=== PATIENT | female | born 1960 | race Caucasian/White ===

== ENCOUNTER 2023-04-18 12:56 | Emergency (ER) | payer OTHER, SELFPAY ==
--- NOTE | ~2023-04-18 | XR_ITS ---
EXAMINATION: XR CHEST CLINICAL INFORMATION: Productive cough COMPARISON: None available. TECHNIQUE: 2 views of the chest were obtained. FINDINGS: No significant abnormality is noted involving the heart, lungs, mediastinum, bony thorax or soft tissues. XR/XR chest 2V IMPRESSION: Unremarkable examination.
[2023-04-18 13:11] VITALS: BP 161/78; PULSE 74; RESP 16; TEMP 36.2; O2SAT 96; BMI 31.8
--- NOTE | 2023-04-18 13:12 | ED_ITS ---
HPI - General Adult General Chief complaint: Upper Respiratory Symptoms Stated complaint: sinus issue Time Seen by Provider: 04/18/23 13:21 Source: patient, RN notes reviewed and old records reviewed Mode of arrival: ambulatory History of Present Illness HPI narrative: 62-year-old female with no significant past medical history presenting to the ED complaining nasal congestion, sinus pressure, rhinorrhea, sore throat, ear pain, and productive cough times a few weeks. Has been taking OTC medications without relief. Reports subjective fever and chills. Also reports mild SOB. Denies chest pain, travel, sick contacts Related Data Previous Rx's Medication Instructions Recorded amoxicillin 875 mg tablet 875 mg PO BID 7 days #14 tabs 04/18/23 benzonatate 100 mg capsule 100 mg PO TID PRN cough #14 caps 04/18/23 fluticasone propionate 50 2 spray intranasal DAILY #16 grams 04/18/23 mcg/actuation nasal spray,suspension (Flonase Allergy Relief) prednisone 20 mg tablet 40 mg (2 x 20 mg) PO DAILY 5 days 04/18/23 #10 tabs Allergies Allergy/AdvReac Type Severity Reaction Status Date / Time Erythromycin Allergy Unknown Unknown Uncoded 04/18/23 13:15 Tylox Allergy Unknown Unknown Uncoded 04/18/23 13:15 Review of Systems Review of Systems: Constitutional: +subj Fever, +Chills ENT/Mouth: + Ear Pain, + Nasal Congestion, No Sinus Pain, No Hoarseness, + sore throat, + Rhinorrhea, No Swallowing Difficulty Cardiovascular: No Chest Pain, + SOB Respiratory: + Cough, + Sputum, No Wheezing Gastrointestinal: No Nausea, No Vomiting, No Diarrhea, No Constipation, No Abdominal pain Musculoskeletal: No joint pain, +Myalgias, No Joint Swelling Skin: No Skin Lesions, No rash Neuro: No Weakness, No Numbness, No Paresthesias Yes all other systems are reviewed and are negative Constitutional: Constitutional: Reports as per [facility] Past Medical History Attestation statement: The following information was validated with the patient. Source: old records reviewed Social History Social History Advance Directives: Yes Advance Directives Information Provided: No Advance Directives on File: No Physical Exam ED Vital Signs: Vital Signs - 24 hr 04/18/23 13:11 Temperature 97.2 F Pulse Rate 74 Respiratory Rate 16 Blood Pressure 161/78 H Pulse Oximetry 96 Oxygen Delivery Method Room Air BMI result Body Mass Index 31.8 Const General: cooperative, healthy appearing and no acute distress Orientation/consciousness: patient oriented x3 Limitations: no limitations HENMT Head: Yes normal to inspection and Yes atraumatic Ears: hearing grossly normal bilaterally, external ears normal, TM's normal bilaterally and mastoids normal General nose exam: Normal external nose present Face and sinus: Yes normal facial exam Mouth: Normal oral and palatal mucosa present and no drooling Throat: Yes posterior oropharynx normal, Yes tonsils normal, Yes uvula midline, No peritonsillar mass, No uvula laterally displaced and No uvular edema Eyes General: appearance normal, both eyes and all related structures EOM: EOMs intact bilaterally Neck Neck: Yes normal visual inspection and Yes no meningeal signs Resp Effort & Inspection: normal respiratory effort, no respiratory distress and no stridor Auscultation: clear to auscultation bilaterally, no crackles and no wheezes Cardio Rate: regular rate Heart sounds: S1 normal heart sound present and S2 normal heart sound present Skin Rashes: no rashes Wounds: no wounds Neuro General: patient oriented x3, tone normal and no meningeal signs Cranial nerves: Yes CN's II-XII intact bilaterally Gait exam (Neuro): Normal gait present Extrem General: Yes normal to inspection Course Course Course Narrative: This is a rapid medical exam: Additional HPI, ROS, PE not included below will be deferred to primary provider. Patient is a 62-year-old female presenting to the emergency department with complaint of sinus pain and pressure as well as cough productive of yellow/green sputum for the past 1.5 weeks, sore throat. Has been using OTC medications and nasal sprays without relief. Unsure of fevers, felt warm/chills but did not check with thermometer. Plan: viral swabs, strep, CXR -COVID/flu and strep negative. Will treat for sinusitis/bronchitis with antibiotics and prednisone Results discussed with patient including worrisome signs and symptoms and strict return precautions, and when to return to the emergency department. They verbalized understanding and feel safe for discharge at this time. Medical Decision Making Medical Decision Making MDM Narrative: 62-year-old female with no significant past medical history presenting to the ED complaining nasal congestion, sinus pressure, rhinorrhea, sore throat, ear pain, and productive cough times a few weeks. On exam vital signs stable, NAD, nontoxic appearing, TMs and oropharynx WNL. Lungs CTA. + congestion. Concern for viral illness vs sinusitis vs pharyngitis vs bronchitis/pneumonia. No evidence of [employer]/retropharyngeal abscess, acute otitis media/externa. Low suspicion for mastoiditis Plan: Viral testing, rapid strep, CXR Please refer to course for remaining clinical decision making, interpretation of labs/imaging results, and discussions with consultants and/or family members. Differential Diagnosis Differential Diagnoses: The differential diagnosis associated with the presentation includes As above Admission/Observation Consideration of admission/observation: Escalation of care including admission/observation considered Lab Data MDM Lab Attestation statement: I reviewed the patient's lab results. Labs: Lab Results 04/18/23 Range/Units 13:30 COVID-19 (TOÑA) Negative (Negative) COVID-19 Clin Com See Note Influenza Type A (MARLEN) Negative (Negative) Influenza Type B (MARLEN) Negative (Negative) Influenza A & B Note See Note S. pyogenes GrpA MARLEN Negative (Negative) Independent Interpretation I performed an independent interpretation of an: Plain X-Ray Radiology Impression Discussion of test interpretation with radiology: I have reviewed the radiologist's reading. External Record Review External record reviewed: Inpatient record, Office record, Outpatient record, Prior outpatient labs, Prior outpatient radiology, Primary care record and Outside ED record Tests considered The following testing was considered but not selected: As above Prescription Management I considered prescription management with: Antibiotic Discharge Plan Discharge Clinical Impression: Sinusitis, Bronchitis Patient Disposition: Home, Self-Care Instructions: Sinusitis (ED), Acute Bronchitis (ED) Additional Instructions: You tested negative for COVID, flu, strep, and your x-ray is unremarkable We will treat you for sinusitis as well as bronchitis Amoxicillin as an antibiotic please take as prescribed Prednisone as a steroid, Tessalon Perles for cough, take as needed Flonase as a nasal decongestant Follow-up with her doctor If symptoms persist or worsen return to the ED Prescriptions: New prednisone 20 mg tablet 40 mg PO DAILY 5 Days Qty: 10 0RF benzonatate 100 mg capsule 100 mg PO TID PRN (Reason: cough) Qty: 14 0RF fluticasone propionate [Flonase Allergy Relief] 50 mcg/actuation spray,laura pension 2 spray intranasal DAILY Qty: 16 0RF Rx Instructions: administer into each nostril amoxicillin 875 mg tablet 875 mg PO BID 7 Days Qty: 14 0RF Referrals: Drew Freed MD [Primary Care Provider] - 5 days Interventions: ED Discharge Assessment Last Done: 04/18/23 15:23 Discharge Date/Time: 04/18/23 15:23
[2023-04-18 13:48] LABS: IDNOW Serial# 58CA691E; Strep A Nucleic Acid Negative (Negative)
[2023-04-18 13:51] LABS: COVID-19 Test Negative (Negative); IDNOW Serial# 9DB6401D
[2023-04-18 14:19] LABS: IDNOW Serial# 6674DD1D; Influenza A Negative (Negative); Influenza B2 Negative (Negative)
== END 2023-04-18 15:23 | disposition home or self-care (01) ==
PROVIDERS: Registered Nurse Emergency; Emergency Provider Student in an Organized Health Care Education/Training Program; PCP Internal Medicine
DX: J32.9 Chronic sinusitis, unspecified (principal); J40 Bronchitis, not specified as acute or chronic; R06.02 Shortness of breath; Z11.52 Encounter for screening for COVID-19
CPT/HCPCS: 71046; 87502; 87635; 87651; 99282; 99283

== ENCOUNTER 2024-06-29 23:17 | Emergency (ER) | payer MEDICARE, SELFPAY ==
--- NOTE | 2024-06-29 | ECG_ITS ---
Test Reason : CHEST PAIN Blood Pressure : */* mmHG Vent. Rate : 68 BPM Atrial Rate : 68 BPM P-R Int : 136 ms QRS Dur : 86 ms QT Int : 422 ms P-R-T Axes : -11 14 10 degrees QTcB Int : 448 ms Normal sinus rhythm Cannot rule out Anterior infarct , age undetermined Abnormal ECG No previous ECGs available Referred By: Generic ED Physician Electronically Signed By: JOSE SHAIKH MD
--- NOTE | ~2024-06-29 | XR_ITS ---
CLINICAL HISTORY: chest pain 2 view chest x-ray Comparison: CR/SR - XR CHEST 2V - 04/18/23 14:04 EST Findings: No consolidation or effusion. Similar prominent/enlarged cardiac silhouette. No acute fracture. IMPRESSION: 1. No acute findings. This document has been electronically signed by: Jeison Becker MD on 06/30/2024 04:49:02
[2024-06-29 23:22] VITALS: BP 170/80; PULSE 75; O2SAT 98
[2024-06-29 23:36] VITALS: BMI 33.2
[2024-06-29 23:41] LABS: MANUAL DIFF FLAG NO
[2024-06-29 23:42] VITALS: BP 144/78; PULSE 68; RESP 13; TEMP 36.3
[2024-06-29 23:42] LABS: Basophils Absolute Auto 0.1 X10*3/uL (0.0-0.2); Basophils Percent Auto 0.7 % (0-2); Eosinophils Absolute Auto 0.4 X10*3/uL (0.0-0.4); Eosinophils Percent Auto 3.6 % (0-4); Hematocrit 47.9 % (37.0-47.0); Hemoglobin 16.2 g/dl (12.0-16.0); Imm Gran Abs Auto 0.05 X10*3/uL (0.00-0.03); Imm Gran Pct Auto 0.5 % (0.0-0.4); Lymphocytes Absolute Auto 3.5 X10*3/uL (1.2-4.9); Lymphocytes Percent Auto 33.9 % (20-40); Mean Corpuscular HGB Conc 33.8 g/dl (31.0-35.0); Mean Corpuscular Hemoglobin 30.9 pg (27.0-33.0); Mean Corpuscular Volume 91.2 fL (80.0-98.0); Mean Platelet Volume 10.4 fL (9.4-12.3); Monocytes Absolute Auto 0.9 X10*3/uL (0.1-1.2); Monocytes Percent Auto 8.3 % (2-11); Neutrophils Absolute Auto 5.5 x10*3/uL (2.0-8.3); Platelet Count 283 X10*3/uL (160-400); Red Blood Count 5.25 X10*6/uL (4.20-5.50); White Blood Count 10.3 X10*3/uL (4.8-10.8)
[2024-06-30] LABS: Alanine Aminotransferase 28 U/L (0-31); Albumin Level 4.6 g/dL (3.5-5.0); Alkaline Phosphatase 126 U/L (39-117); Anion Gap 14 (12-20); Aspartate Amino Transferase 31 U/L (5-31); Bilirubin Total 0.4 mg/dL (0.0-1.0); Blood Urea Nitrogen 19 mg/dL (9-16); Calcium 9.8 mg/dL (8.4-10.2); Carbon Dioxide 24 mmol/L (22-29); Chloride 107 mmol/L (96-108); Creatinine Clr Calc Pharmacy 73.4; Estimated Glomerular Filt Rate > 60; Glucose Random 103 mg/dL (60-115); Lipase 36 U/L (8-78); Magnesium 2.1 mg/dL (1.6-2.6); Potassium 3.8 mmol/L (3.3-5.1); Sodium 141 mmol/L (135-145); Total Protein 8.2 g/dL (6.5-8.0)
[2024-06-30 00:07] LABS: Troponin-I High Sensitivity < 2.7 ng/L (<3.5-17.0)
[2024-06-30 02:13] LABS: Troponin-I High Sensitivity < 2.7 ng/L (<3.5-17.0)
--- NOTE | 2024-06-30 03:16 | PC.NURSE ---
pt continues to wait to be seen by ED provider.
--- NOTE | 2024-06-30 03:23 | ED_ITS ---
HPI - Chest Pain General Chief Complaint: Chest Pain Stated Complaint: Hypertension, CP, Shoulder Discomfort Time Seen by Provider: 06/30/24 03:23 History of Present Illness ED Provider: Moreno FAITH narrative: The patient is a 63-year-old woman who says that at around 21:00 this evening she started to feel some discomfort between her shoulder blades. She thought that it felt like perhaps some muscular discomfort. [place] like she had some pressure in her back that was somewhat worse with moving. At some point after the pain in her back began she also felt some pain in her chest. The pain in the anterior chest was similar to the discomfort between the shoulder blades. She ultimately checked her blood pressure and it was 160/107. She says she normally has perfectly normal blood pressures. The patient took 2 baby aspirin. She called an ambulance and was brought to the hospital. Paramedics also administered 2 baby aspirin. The patient has chest discomfort has resolved. She still feels the pain between his shoulder blades. She has had no shortness of breath, no diaphoresis, no nausea or vomiting. She has never had symptoms like this before. She has no history of stroke or heart attack. No fever, sweats, chills. She says she has been doing anything in the time before the symptoms began. She had had a very unremarkable day with no exertion or stress or straining. She says that about a week ago she fell and sprained her right ankle. She has an ankle brace on. She was seen at an urgent care. Related Data Previous Rx's ?Medication ?Instructions ?Recorded amoxicillin 875 mg tablet 875 mg PO BID 7 days #14 tabs 04/18/23 benzonatate 100 mg capsule 100 mg PO TID PRN cough #14 caps 04/18/23 fluticasone propionate 50 2 spray intranasal DAILY #16 grams 04/18/23 mcg/actuation nasal spray,suspension (Flonase Allergy Relief) prednisone 20 mg tablet 40 mg (2 x 20 mg) PO DAILY 5 days 04/18/23 #10 tabs Allergies Allergy/AdvReac Type Severity Reaction Status Date / Time amoxicillin [From Augmentin] Allergy Nausea and Verified 06/29/24 23:39 Vomiting clavulanic acid Allergy Nausea and Verified 06/29/24 23:39 [From Augmentin] Vomiting Erythromycin Allergy Unknown Hives Uncoded 06/29/24 23:33 Tylox Allergy Unknown Hives Uncoded 06/29/24 23:33 Review of Systems 2 Review of Systems: Yes all other systems are reviewed and are negative [facility] Social History Social History Smoked in Last 30 Days: No Use of substances other than those prescribed or required for medical reasons: No Advance Directives: No Advance Directives Information Provided: Yes Do you have a plan to hurt others: No Plan Physical Exam 2 Vital Signs: Vital Signs: Last Vital Signs Temp 97.9 F 06/30/24 04:04 Pulse 65 06/30/24 04:04 Resp 16 06/30/24 04:04 BP 164/80 H 06/30/24 04:04 Pulse Ox 98 06/30/24 04:04 O2 Del Method Room Air 06/30/24 04:04 BMI result Body Mass Index 33.2 Const: Other: The patient is awake, alert, pleasant, cooperative. She does not appear in any distress. Orientation/consciousness: patient oriented x3 HEENT: Other: Face is symmetrical, mucous membranes moist. Eyes: General: appearance normal, both eyes and all related structures Neck: Neck: Yes full ROM and Yes no JVD Resp: Effort & Inspection: normal respiratory effort Auscultation: clear to auscultation bilaterally Cardio: Rate: regular rate Rhythm: regular rhythm Heart sounds: S1 normal heart sound present and S2 normal heart sound present GI: Other: The abdomen is soft and nontender Back/Spine/Pelvis: Other: The patient seems to have tenderness in the paraspinous muscles of the thoracic spine in the interscapular region. Palpation seems to reproduce her pain. Skin: Other: The skin is dry and unremarkable Neuro: General: patient oriented x3, gait normal, tone normal, moves all extremities, no focal motor deficits and CN's II-XI intact bilaterally Extrem: Other: No peripheral edema, no calf swelling or tenderness, no asymmetry Medical Decision Making Medical Decision Making MDM Narrative: The patient is a 63-year-old woman who developed pain in the interscapular region while sitting at home tonight. There were no triggering factors. She subsequently developed some anterior chest discomfort as well. There was no associated shortness of breath, diaphoresis, or nausea. She checked her blood pressure and it was high. This made her nervous and she called an ambulance and was brought to the hospital. Here her chest symptoms resolved spontaneously. She continues to have some pain in her back between her scapula. This pain seems reproducible with palpation of the paraspinous muscles at this level. She looks well otherwise. EKGs unremarkable. Chest x-ray is clear. Troponins are unremarkable. My suspicion for an acutely dangerous process in his the patient is low. I think she has a essentially ruled out for myocardial infarction. She is not describing any shortness of breath or pleuritic symptoms to suggest a pulmonary embolism. I think it is unlikely this is an aortic dissection or other aortic pathology. I think the patient may be discharged to follow up with her PCP or return if worse. Lab Data 06/29/24 08:25 06/29/24 23:36 Labs: Lab Results 06/29/24 06/29/24 06/30/24 Range/Units 08:25 23:36 01:50 WBC 10.3 (4.8-10.8) X10*3/uL RBC 5.25 (4.20-5.50) X10*6/uL Hgb 16.2 H (12.0-16.0) g/dl Hct 47.9 H (37.0-47.0) % MCV 91.2 (80.0-98.0) fL MCH 30.9 (27.0-33.0) pg MCHC 33.8 (31.0-35.0) g/dl RDW 12.0 (11.0-16.0) % Plt Count 283 (160-400) X10*3/uL MPV 10.4 (9.4-12.3) fL Immature Gran % (Auto) 0.5 H (0.0-0.4) % Neut % (Auto) 53.0 (45-73) % Lymph % (Auto) 33.9 (20-40) % [place] % (Auto) 8.3 (2-11) % Eos % (Auto) 3.6 (0-4) % Baso % (Auto) 0.7 (0-2) % Lymph # (Auto) 3.5 (1.2-4.9) X10*3/uL [place] # (Auto) 0.9 (0.1-1.2) X10*3/uL Eos # (Auto) 0.4 (0.0-0.4) X10*3/uL Baso # (Auto) 0.1 (0.0-0.2) X10*3/uL Abs Immat Gran (auto) 0.05 H (0.00-0.03) X10*3/uL Absolute Neuts (auto) 5.5 (2.0-8.3) x10*3/uL Absolute Nucleated RBC 0.000 (0.0-0.012) X10*3/uL Nucleated RBC % (auto) 0.0 (0.0-0.2) /100WBC Sodium 141 (135-145) mmol/L Potassium 3.8 (3.3-5.1) mmol/L Chloride 107 (96-108) mmol/L Carbon Dioxide 24 (22-29) mmol/L Anion Gap 14 (12-20) BUN 19 H (9-16) mg/dL Creatinine 0.76 (0.5-1.4) mg/dL Estim Creat Clear Calc 73.4 Estimated GFR > 60 Random Glucose 103 (60-115) mg/dL Calcium 9.8 (8.4-10.2) mg/dL Magnesium 2.1 (1.6-2.6) mg/dL Total Bilirubin 0.4 (0.0-1.0) mg/dL AST 31 (5-31) U/L ALT 28 (0-31) U/L Alkaline Phosphatase 126 H (39-117) U/L Troponin I High Sens < 2.7 < 2.7 (<3.5-17.0) ng/L Total Protein 8.2 H (6.5-8.0) g/dL Albumin 4.6 (3.5-5.0) g/dL Lipase 36 (8-78) U/L Discharge Plan Discharge Clinical Impression: Interscapular pain, Chest pain Patient Disposition: Home, Self-Care Additional Instructions: Your testing in the emergency today seems quite reassuring. Please plan on resting and taking it easy. You may use ibuprofen and/or acetaminophen as needed for discomfort. Please contact your regular doctor's office tomorrow to schedule a follow up appointment in the next week or two to discuss this episode and to recheck your blood pressure. Return to the emergency room if you feel significantly worse at any time. Prescriptions: No Action prednisone 20 mg tablet 40 mg PO DAILY 5 Days Qty: 10 0RF benzonatate 100 mg capsule 100 mg PO TID PRN (Reason: cough) Qty: 14 0RF fluticasone propionate [Flonase Allergy Relief] 50 mcg/actuation spray,suspension 2 spray intranasal DAILY Qty: 16 0RF Rx Instructions: administer into each nostril amoxicillin 875 mg tablet 875 mg PO BID 7 Days Qty: 14 0RF Referrals: Drew Freed MD [Physician] - Interventions: ED Discharge Assessment Last Done: 06/30/24 04:04 Discharge Date/Time: 06/30/24 04:05 Print Language: Thai
[2024-06-30 04:04] VITALS: BP 164/80; PULSE 65; RESP 16; TEMP 36.6; O2SAT 98
== END 2024-06-30 04:05 | disposition home or self-care (01) ==
PROVIDERS: Emergency Provider Emergency Medicine
DX: M54.6 Pain in thoracic spine (principal); R07.9 Chest pain, unspecified; Z79.899 Other long term (current) drug therapy
CPT/HCPCS: 36415; 71046; 80053; 83690; 83735; 84484; 85025; 93005; 99283; 99285

== ENCOUNTER → 2024-06-29 23:35 | Outpatient (BNV) | payer MEDICARE, SELFPAY | PROVIDERS: Emergency Provider Emergency Medicine; Visit Provider Internal Medicine Cardiovascular Disease | DX: R94.31 Abnormal electrocardiogram [ECG] [EKG] (principal); R07.9 Chest pain, unspecified | CPT/HCPCS: 93010 ==

== ENCOUNTER → 2024-06-30 03:37 | Outpatient (BNV) | payer MEDICARE, SELFPAY | PROVIDERS: Emergency Provider Emergency Medicine; Visit Provider Radiology Diagnostic Radiology | DX: R07.9 Chest pain, unspecified (principal) | CPT/HCPCS: 71046 ==